=== PATIENT | female | born 1965 | race Two or more races ===

== ENCOUNTER 2018-02-21 09:02 | Outpatient (CLI) | payer OTHER | END 2018-02-21 09:43 | disposition home or self-care (01) | LOC: SONOGRAMA 09:02 | DX: E04.1 Nontoxic single thyroid nodule (principal) ==

== ENCOUNTER 2025-03-16 09:21 | Outpatient (CLI) | payer OTHER | END 2025-03-16 09:25 | disposition home or self-care (01) | LOC: SONOGRAMA 09:21 | PROVIDERS: ATTEND Pathology Anatomic Pathology | DX: D34 Benign neoplasm of thyroid gland (principal); E07.89 Other specified disorders of thyroid; E04.2 Nontoxic multinodular goiter ==